=== PATIENT | female | born 1995 | race African-American/Black ===

== ENCOUNTER 2025-02-18 19:42 | Emergency (ER) | payer OTHER ==
[~2025-02-18] VITALS: Ht 172.7 cm; Wt 115.2 kg
[2025-02-18 20:11] VITALS: BP 142/69; O2SAT 98
[2025-02-18] MEDS ORDERED: MORPHINE SULFATE 4 MG/1 ML DISP.SYRIN IV ONE (20:15)
[2025-02-18] MEDS ORDERED: IV NS 1000 ML 1,000 ML IV PRN (20:15)
[2025-02-18] MEDS ORDERED: METOCLOPRAMIDE HCL 10 MG/2 ML VIAL IV ONE (20:15)
[2025-02-18 20:22] LABS: PLATELET COUNT (AUTO) 344 K/uL (179-408); RED BLOOD CELL COUNT(AUTO) 4.22 MIL/uL (3.63-4.92); RED CELL DISTRIBUTION WIDTH 12.8 % (12.3-17.7); WHITE BLOOD COUNT (AUTO) 5.5 K/uL (3.8-11.8)
[2025-02-18 20:29] LABS: CREATININE 0.7 mg/dL (0.6-1.3); SODIUM SERUM 145.0 mmol/L (136-145); UREA NITROGEN, BLOOD 7.0 mg/dL (7-18)
[2025-02-18 20:35] LABS: ASPARTATE AMINOTRANSFERASE 104.0 U/L (15-37); TOTAL PROTEIN, SERUM 7.3 g/dL (6.4-8.2)
== END 2025-02-18 21:14 | disposition home or self-care (01) ==
LOC: ER 19:42
DX: R10.13 Epigastric pain (principal); R11.10 Vomiting, unspecified; Z85.41 Personal history of malignant neoplasm of cervix uteri; Z88.6 Allergy status to analgesic agent; Z90.49 Acquired absence of other specified parts of digestive tract; Z60.2 Problems related to living alone
CPT/HCPCS: 36415; 83690; 85025; A4606; A4663